=== PATIENT | male | born 1950 | race Two or more races ===

== ENCOUNTER 2020-03-29 11:22 | Day surgery (SDC) | payer MEDICARE, OTHER ==
[2020-03-29 12:09] LABS: HEMATOCRIT 26.9 % (37.9-51.0); HEMOGLOBIN 9.1 g/dL (13.5-17.0); MEAN CORPUSCULAR HGB CONC 33.8 g/dL (32.0-36.0); MEAN CORPUSCULAR VOLUME 80 fl (80-97); PLATELET COUNT 100 10^3/uL (150-450); RED BLOOD COUNT 3.37 10^6/uL (4.35-5.55); RED CELL DISTRIBUTION WIDTH 26.4 % (11.5-14.0); WHITE BLOOD COUNT 7.9 10^3/uL (4.0-10.5)
[2020-03-29 12:18] LABS: INTERNATIONAL RATION (INR) 1.33; PROTHROMBIN TIME 16.7 SEC (11.4-15.4)
[2020-03-29 12:24] LABS: BLOOD UREA NITROGEN 16 mg/dL (7-20)
--- NOTE | 2020-03-29 14:44 | RADIOLOGY REPORT (SQ) ---
EXAM DESCRIPTION: U/S ABD PARACENTESIS IMAGES COMPLETED DATE/TIME: 03/29/2020 1:55 pm REASON FOR STUDY: ASCITES COMPARISON None. LIMITATIONS: None. PROCEDURE: After obtaining informed consent, the patient was brought to the ultrasound suite. The p rocedure was performed with the patient on a gurney. Ultrasound was used to identify a prominent poc ket of ascites in the left lower quadrant. An appropriate access site was selected. The patient was prepped and draped in usual sterile fashion. The access site was anesthetized with 5 mL 1% lidocai ne. A Fnkk-Y-Ldxlbipe needle was advanced into the fluid. After aspiration of fluid the needle, the catheter was advanced off the needle into the fluid. A total of 2,100 mL of straw-colored fluid was removed. The patient tolerated the procedure well left the department in satisfactory condition. IMPRESSION: Successful ultrasound-guided paracentesis COMMENT: Patient medication list reviewed: Yes- Quality ID# [id number]:Eligible professional attests to doc umenting in the medical record they obtained, updated, or reviewed the patient's current medications. TECHNICAL DOCUMENTATION: JOB ID: [id number] 2010 [employer]- All Rights Reserved Reading location - IP/workstation name: [email or web address]
[2020-03-29 14:46] VITALS: BP 130/60
== END 2020-03-29 14:40 | disposition home or self-care (01) ==
LOC: RAD 11:22
PROVIDERS: ATTEND Internal Medicine
DX: R18.8 Other ascites (principal); C25.9 Malignant neoplasm of pancreas, unspecified; Z79.891 Long term (current) use of opiate analgesic
CPT/HCPCS: 36415; 84520; 82565; 85027; 85610; 85730; 49083; J1642